=== PATIENT | female | born 1995 | race Two or more races ===

== ENCOUNTER 2018-06-19 10:11 | Inpatient (IN) | payer BC ==
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
[2018-06-19 11:32] LABS: PLATELET COUNT 267 10^3/uL (150-400)
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
--- NOTE | 2018-06-19 16:40 | ASMTTCLDSP ---
TLC Discharge Disposition Disposition: Answers: Admit Discharge Concerns/Recommendations: Notes: In consultation with [facility] ED physician, Dion Talley MD and on-call psychiatrist, Kirit Urena MD, both concurred that pt appears to meet 27-65 criteria requiring psychiatric hospitalization as pt appears to be at risk of harm to self due to a mental illness condition. Pt was read the Patient Rights and Responsibilities Statement on 06/22/2018 at 14:30, original placed on chart, and was given photocopy of Rights. Pt signed the Patient Rights. Pt was given the DC prohibited belongings list while in the ED. For inpatient Kirit Urena MD admission, the following psychiatrist agreed to accept patient for [facility] to Behavior[facility] ([facility] Date Signed: 06/19/2018 04:39 PM Electronically Signed By:Ann Marr
[2018-06-19] MEDS ORDERED: MAGNESIUM HYDROXIDE 30 ML UDCUP PO PRN (16:57)
[2018-06-19] MEDS ORDERED: NICOTINE POLACRILEX 2 MG GUM B PRN (16:57)
[2018-06-19] MEDS ORDERED: LORazepam 0.5 MG TAB PO PRN (16:58)
[2018-06-19] MEDS ORDERED: ACETAMINOPHEN 325 MG TAB PO PRN (16:58)
[2018-06-19] MEDS ORDERED: MAG HYDROX/AL HYDROX/SIMETH 30 ML UDCUP PO PRN (16:59)
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
[2018-06-21 06:39] VITALS: BP 111/76
--- NOTE | 2018-06-21 13:00 | BDS ---
[f rep st] BEHAVIORAL HEALTH DISCHARGE SUMMARY REASON FOR ADMISSION: The patient was admitted involuntarily and on an M1 hold due to being a danger to herself. The patient was admitted for safety, crisis stabilization, and medication management. ADMITTING DIAGNOSIS: Adjustment disorder with mixed disturbance of mood and conduct. ADMISSION PHYSICAL EXAM: Patient was seen on 06/20/2018 for history and physical consultation for medical clearance for inpatient psychiatric hospitalization and treatment. Patient was medically cleared for inpatient psychiatric hospitalization and treatment. For further details, please refer to consultation document dated 06/20/2018. ADMISSION LABS: 1. CBC within normal limits except neutrophils were elevated at 78.7, eosinophils low at 0.1, basophils low at 0.2, absolute eosinophils low at 0.01. 2. BMP within normal limits except carbon dioxide was low at 20. 3. Hemoglobin A1c within normal limits at 5.5. 4. Liver function within normal limits. 5. Lipid panel within normal limits except LDL cholesterol calculated was elevated at 105. 6. Beta hCG qualitative test is negative. 7. Toxicology screen non-negative for THC, negative for all the other substances that were screened and negative for ethyl alcohol. MAJOR PROCEDURES OR TESTS: None. HOSPITAL COURSE: The most prominent symptoms and behaviors while the patient was here were reports of moderate anxiety. Treatment modalities utilized were milieu and group therapy. Patient has improved considerably with no signs of psychiatric symptoms and no psychiatric symptoms expressed. Patient reports she has improved since admission, states to be in stable condition, feels safe to discharge, and she contracts for safety. Patients response to treatment was good. There were no adverse or unexpected results of treatment. The patient was safe throughout stay, active in treatment, engaged in groups, and was appropriate with staff. Patient met with treatment team prior to discharge to assess readiness to discharge and review discharge plan. The treatment team consensus is the patient in stable condition, has a safe discharge plan, and is ready to discharge today. CONDITION AT DISCHARGE: Patient is in stable condition and is no longer a danger to self or others, and is not gravely disabled due to mental illness. Patient is no longer in need of inpatient level of care, and can be safely and effectively treated within the community. The patients level of risk at time of discharge is low. MSE: The patient is casually dressed and with good hygiene , and looks stated age. Patient is sitting, posture is upright, and position is relaxed. Patient appears awake, alert, and responds appropriately and reasonably during interview. Patient is engaged, relates well to interviewer, and emotional facial expression is appropriate to situation and changes appropriately with topic. Patient is cooperative, makes comfortable eye contact , and movements are voluntary, deliberate, coordinated, and smooth and even with no inappropriate movements. Patient makes laryngeal sounds effortlessly and shares conversation appropriately; pace of conversation is appropriate, and stream of talking is fluent; articulation is clear and understandable; word choice is effortless and appropriate for education level; completes sentences, occasionally pausing to think; rate and volume are appropriate for interview and setting. Patient reports mood as euthymic. Patients affect is stable with full variable range, congruent with mood, and appropriate to speech and circumstances. Patient has linear and logical thinking, with no loose associations, tangential thought, thought blocking, concrete thinking, or any other signs of formal thought disorder. Patient denies suicidal and homicidal ideation, and denies hallucinations and delusions. Patient appears to be a reliable historian with sound judgement and good insight into current condition. Patient has no apparent dysfunction in recent or remote memory noted , and no evidence of gross cognitive dysfunction noted at any point during the interview. DISCHARGE DIAGNOSIS: Adjustment disorder with mixed disturbance of emotion and conduct. CURRENT MEDICATIONS: None. DISPOSITION: The patient left hospital independently and voluntarily with her family and plans to go with her family today and travel to [place] and live with her mother and stepfather. FOLLOWUP: education and outreach coordinator reports the appropriate outpatient follow-up services have been established and outpatient appointments have been scheduled. The patient received written instructions with times and dates of outpatient follow-up appointments. The following follow-up recommendations were provided to the patient at discharge: Continue psychotropic medications as prescribed and attend appointments as scheduled. Report any side effects to a psychiatric outpatient provider, a primary care provider, or other health intensive care specialist. Address any questions or problems concerning the psychotropic medications with a psychiatric outpatient provider, a primary care provider, or other health intensive care specialist. Contact [facility] or [facility], or go to the nearest emergency room, if you are ever a danger to yourself/others, or unable to care for yourself. As soon as possible, establish a routine medication management treatment with a psychiatric provider, establish routine therapy appointments, and follow-up with a primary care provider. ATTITUDE AT TIME OF DISCHARGE: The patients attitude was positive at time of discharge, and patient reports looking forward to discharging today. The patient reports she feels safe to discharge, is no longer a danger to herself or others, is in stable condition, and contracts for safety. LABS AND RADIOLOGY STUDIES: There were no pending labs or studies at time of discharge. ADVANCE DIRECTIVES: There were no advance directives on file, and patient was full code during this hospitalization. /[id number]/MODL MTDD
== END 2018-06-21 11:54 | disposition home or self-care (01) | DRG 882 ==
LOC: BBEH 16:05
PROVIDERS: ADMIT Psychiatry & Neurology Psychiatry; ATTEND Registered Nurse
DX: F43.25 Adjustment disorder with mixed disturbance of emotions and conduct (principal); R45.851 Suicidal ideations
CPT/HCPCS: 80305; G0480